=== PATIENT | female | born 1980 | race African-American/Black ===

== ENCOUNTER 2021-10-09 13:34 | Inpatient (IN) | payer MEDICAID, OTHER ==
[~2021-10-09] VITALS: Ht 162.6 cm; Wt 67.8 kg
[2021-10-09] MEDS ORDERED: SODIUM CHLORIDE 0.9% 1,000 ML IV ONE (14:15)
[2021-10-09] MEDS ORDERED: ACETAMINOPHEN 325MG TABLET PO ONE (14:15)
[2021-10-09 14:34] LABS: BASOPHILS % 1.4 % (0.0-2.0); EOSINOPHILS % 0.1 % (0.0-5.0); LYMPHOCYTES % 22.3 % (20.0-50.0); MEAN CORPUSCULAR HEMOGLOBIN 15.4 pg (28.0-32.0); MEAN CORPUSCULAR VOLUME 54.8 fL (81.0-99.0); MONOCYTES % 10.7 % (2.0-8.0); NEUTROPHILS % 65.5 % (40.0-76.0); PLATELET 562 x1000/uL (130-400); RED BLOOD CELL COUNT 3.43 mill/uL (4.2-5.4); RED CELL DISTRIBUTION WIDTH 24.7 % (11.6-14.6)
[2021-10-09 14:38] LABS: CHLORIDE 105 mEq/L (98-107)
[2021-10-09 14:43] LABS: HCG SCREEN NEGATIVE
[2021-10-09 14:53] LABS: HEMOGLOBIN. 5.3 g/dL (12.0-16.0)
[2021-10-09 14:54] LABS: HEMATOCRIT. 18.8 % (36.0-48.0)
[2021-10-09 16:47] LABS: PLATELET ESTIMATE MARKEDLY INCREASED
[2021-10-10] VITALS (15 sets, daily range): BP systolic 92–147; BP diastolic 33–88
[2021-10-10] MEDS ORDERED: ACETAMINOPHEN 325MG TABLET PO PRN (02:45)
[2021-10-10] MEDS ORDERED: IRON SUCROSE COMPLEX 100 MG/5 ML ML IV NR ×3 (02:45→09:00)
[2021-10-10 03:30] LABS: MEAN CORPUSCULAR HEMOGLOBIN 18.3 pg (28.0-32.0); MEAN CORPUSCULAR VOLUME 59.5 fL (81.0-99.0); MEAN PLATELET VOLUME 8.3 fl (7.4-10.4); PLATELET 448 x1000/uL (130-400); RED BLOOD CELL COUNT 3.01 mill/uL (4.2-5.4); RED CELL DISTRIBUTION WIDTH 30.4 % (11.6-14.6)
[2021-10-10 03:40] LABS: CHLORIDE 111 mEq/L (98-107)
[2021-10-10 03:41] LABS: HEMATOCRIT. 17.9 % (36.0-48.0); HEMOGLOBIN. 5.5 g/dL (12.0-16.0)
[2021-10-10] MEDS ORDERED: POTASSIUM CHLORIDE 20MEQ TABLET SR PO NR (10:30)
[2021-10-10] MEDS ORDERED: DOCU250C14 MT (14:04)
[2021-10-10] MEDS ORDERED: FERR325T23 MT (14:04)
[2021-10-10 15:52] LABS: HEMATOCRIT 24.9 % (36.0-48.0)
[2021-10-10 17:17] LABS: PLATELET ESTIMATE INCREASED
[2021-10-10 18:12] LABS: CLARITY URINE CLEAR (CLEAR); COLOR URINE YELLOW (YELLOW); KETONES URINE TRACE (NEGATIVE); LEUKOCYTE ESTERASE URINE TRACE (NEGATIVE); NITRITE URINE NEGATIVE (NEGATIVE); OCCULT BLOOD URINE NEGATIVE (NEGATIVE); PROTEIN URINE TRACE (NEGATIVE); SPECIFIC GRAVITY URINE 1.022 (1.005-1.030)
== END 2021-10-10 17:25 | disposition home or self-care (01) | DRG 663 ==
LOC: ER 13:34 → ENRESERV 19:49 → EDBEDREQTM 22:49 → EDBEDREQSVC 22:49 → ER 10-10 00:44 → 7EST 10-10 02:36
PROVIDERS: ADMIT Internal Medicine; ATTEND Internal Medicine
PROC: 30233N1 Transfusion of Nonautologous Red Blood Cells into Peripheral Vein, Percutaneous Approach (ICD-10-PCS; principal; 2021-10-09)
DX: D62 Acute posthemorrhagic anemia (principal); U07.1 COVID-19; E87.1 Hypo-osmolality and hyponatremia; D72.819 Decreased white blood cell count, unspecified; R07.9 Chest pain, unspecified; Z98.891 History of uterine scar from previous surgery; N92.0 Excessive and frequent menstruation with regular cycle
CPT/HCPCS: 36415; 71045; 80048; 80053; 81003; 83880; 84443; 84703; 85014; 85018; 85025; 85379; 86850; 86900; 86920; 87426; 93005; 99291; C9803; J7030; P9016

== ENCOUNTER 2022-03-29 07:38 | Inpatient (IN) | payer OTHER ==
[~2022-03-29] VITALS: Ht 162.6 cm; Wt 78.0 kg
[~2022-03-29 07:38] MED LIST: DOCU250C14 MT; FERR325T23 MT
[2022-03-29 09:55] LABS: BASOPHILS % 1.5 % (0.0-2.0); EOSINOPHILS % 1.4 % (0.0-5.0); LYMPHOCYTES % 31.7 % (20.0-50.0); MEAN CORPUSCULAR HEMOGLOBIN 19.6 pg (28.0-32.0); MEAN CORPUSCULAR VOLUME 63.9 fL (81.0-99.0); MEAN PLATELET VOLUME 8.7 fl (7.4-10.4); MONOCYTES % 8.7 % (2.0-8.0); NEUTROPHILS % 56.7 % (40.0-76.0); PLATELET 566 x1000/uL (130-400); RED BLOOD CELL COUNT 3.45 mill/uL (4.2-5.4)
[2022-03-29 10:00] LABS: CHLORIDE 106 mEq/L (98-107)
[2022-03-29 10:02] LABS: PROTHROMBIN TIME 10.4 sec (9.6-11.0)
[2022-03-29 10:04] LABS: HEMOGLOBIN. 6.8 g/dL (12.0-16.0)
[2022-03-29 11:29] LABS: PLATELET ESTIMATE INCREASED
[2022-03-29 12:28] LABS: CLARITY URINE CLEAR (CLEAR); COLOR URINE YELLOW (YELLOW); KETONES URINE NEGATIVE (NEGATIVE); LEUKOCYTE ESTERASE URINE 1+ (NEGATIVE); NITRITE URINE NEGATIVE (NEGATIVE); OCCULT BLOOD URINE NEGATIVE (NEGATIVE); PROTEIN URINE NEGATIVE (NEGATIVE); SPECIFIC GRAVITY URINE 1.018 (1.005-1.030); UROBILINOGEN URINE 0.2 E.U./dL (0.2-1.0)
[2022-03-29 21:21] VITALS: BP 109/51
== END 2022-03-30 08:58 | disposition left against medical advice (07) | DRG 663 ==
LOC: ER 07:38 → MICUSO 14:19 → EDBEDREQTM 14:20 → EDBEDREQ 14:20
PROVIDERS: ADMIT Internal Medicine; ATTEND Internal Medicine
PROC: 30233N1 Transfusion of Nonautologous Red Blood Cells into Peripheral Vein, Percutaneous Approach (ICD-10-PCS; principal; 2022-03-29)
DX: D62 Acute posthemorrhagic anemia (principal); D25.9 Leiomyoma of uterus, unspecified; Z53.29 Procedure and treatment not carried out because of patient's decision for other reasons; Z98.891 History of uterine scar from previous surgery
CPT/HCPCS: 36415; 80053; 81003; 83605; 85025; 85044; 86850; 86900; 86920; 93005; 99291; P9016

== ENCOUNTER 2023-03-09 16:36 | Emergency (ER) | payer OTHER ==
[~2023-03-09] VITALS: Ht 162.6 cm; Wt 70.3 kg
[2023-03-09 17:02] VITALS: BP 142/65; PULSE 68; RESP 16; TEMP 98.2; O2SAT 99
== END 2023-03-10 02:54 | disposition left against medical advice (07) ==
LOC: ER 16:36
DX: R10.13 Epigastric pain (principal); R11.2 Nausea with vomiting, unspecified; Z53.21 Procedure and treatment not carried out due to patient leaving prior to being seen by health care provider
CPT/HCPCS: 93005; 99281